=== PATIENT | female | born 1955 | race Caucasian/White ===

== ENCOUNTER 2020-03-20 17:41 | Inpatient (IN) ==
[2020-03-20 20:09] LABS: INR 1.11 (0.82-1.09)
[2020-03-20 20:10] LABS: Hematocrit 44 % (35-47); Mean Corpuscular HGB Conc 34 g/dL (31-36); Mean Corpuscular Hemoglobin 30 pg (27-31); Mean Corpuscular Volume 88 fL (80-97); Red Cell Distribution Width 14 % (10-15)
[2020-03-20 20:18] LABS: Urine Appearance Turbid; Urine Bilirubin Negative (Negative); Urine Blood 1+ (Negative); Urine Color Amber; Urine Glucose Negative (Negative); Urine Ketones Negative (Negative); Urine Nitrite Negative (Negative); Urine Protein 2+(100 mg/dL) (Negative); Urine Specific Gravity 1.016 (1.010-1.030); Urine Urobilinogen Negative (Negative)
[2020-03-20 20:20] LABS: Urine Bacteria Absent (Absent); Urine Red Blood Cell 3+(>10/hpf) (Absent); Urine Squamous Epithelial Cell Present (Absent); Urine White Blood Cell 3+(>20/hpf) (Absent)
[2020-03-20 20:23] LABS: ALT 76 U/L (7-52); Albumin 3.2 g/dL (3.2-5.2); Albumin/Globulin Ratio 0.9 (1-3); Alkaline Phosphatase 88 U/L (34-104); BUN/Creatinine Ratio 18.8 (8-20); Blood Urea Nitrogen 47 mg/dL (6-24); C Reactive Protein 302.02 mg/L (<8.01); CO2 Carbon Dioxide 22 mmol/L (22-32); Calcium 10.5 mg/dL (8.6-10.3); Chloride 94 mmol/L (101-111); EGFR African American 23.4 (>60); EGFR Non-African American 19.3 (>60); Globulin 3.6 g/dL (2-4); Glucose 132 mg/dL (70-100); Sodium 130 mmol/L (135-145); Total Protein 6.8 g/dL (6.4-8.9)
[2020-03-20] MEDS ORDERED: NS 0.9% 1000 ml BAG 1,000 ML IV ONE (20:33)
[2020-03-20] MEDS ORDERED: cefTRIAXone 1 gm/50 mL NS BAG 1 GM/50 ML BAG IV ONE (20:33)
[2020-03-20 20:38] LABS: ABS Lymphocytes 0.8 10^3/ul (1.0-4.8); ABS Neutrophils 9.1 10^3/ul (1.5-7.7); Eosinophil % 0.2 %; Platelet Count 32 10^3/uL (150-450)
[2020-03-20 21:00] LABS: Influenza A Molecular Negative (Negative); Influenza B Molecular Negative (Negative)
[2020-03-20 21:11] LABS: Anion Gap 14 mmol/L (2-11)
[2020-03-20] MEDS ORDERED: Ondansetron 4 mg VIAL 2 MG/ML 2 ml VIAL IV PRN (21:45)
[2020-03-20] MEDS ORDERED: NS 0.9% 1000 ml BAG 1,000 ML IV SCH (21:45)
[2020-03-20 22:12] LABS: Potassium Redraw 3.8 mmol/L (3.5-5.0)
[2020-03-21] MEDS: NS 0.9% 1000 ml BAG 1,000 ML IV SCH ×2 (00:43→17:17)
[2020-03-21] MEDS: DOXYcycline 100 MG in NS 0.9% 250 ml 250 ML IVPB SCH ×2 (01:38→11:49)
[2020-03-21] MEDS: Al Hydrox/Mg Hydrox/Simet LIQ 30 ML UDC PO PRN ×2 (04:51→12:09)
[2020-03-21 07:31] LABS: BUN/Creatinine Ratio 23.2 (8-20); EGFR Non-African American 30.6 (>60); Potassium 3.3 mmol/L (3.5-5.0)
[2020-03-21 08:32] LABS: ABS Eosinophils 0.1 10^3/ul (0-0.6); ABS Lymphocytes 0.5 10^3/ul (1.0-4.8); ABS Monocytes 1.4 10^3/ul (0-0.8); ABS Neutrophils 9.5 10^3/ul (1.5-7.7); Eosinophil % 0.7 %; Hematocrit 35 % (35-47); Hemoglobin 11.9 g/dL (12.0-16.0); Lymphocyte % 4.4 %; Mean Corpuscular HGB Conc 34 g/dL (31-36); Mean Corpuscular Hemoglobin 30 pg (27-31); Mean Corpuscular Volume 88 fL (80-97); Mean Platelet Volume 11.2 fL (7.4-10.4); Nucleated Red Blood Cells % 0.1; Platelet Count 13 10^3/uL (150-450); Red Blood Count 3.96 10^6 /uL (3.70-4.87); Red Cell Distribution Width 14 % (10-15); White Blood Count 11.5 10^3/uL (3.5-10.8)
[2020-03-21] MEDS ORDERED: Heparin 5000 UNITS/ML 1 mL VIAL SUBCUT SCH (09:00)
[2020-03-21 11:23] LABS: ABS Lymphocytes 1.2 10^3/ul (1.0-4.8); ABS Monocytes 1.6 10^3/ul (0-0.8); ABS Neutrophils 8.8 10^3/ul (1.5-7.7); Eosinophil % 0.1 %; Hematocrit 34 % (35-47); Hemoglobin 11.4 g/dL (12.0-16.0); Lymphocyte % 10.5 %; Mean Corpuscular HGB Conc 34 g/dL (31-36); Mean Corpuscular Hemoglobin 30 pg (27-31); Mean Corpuscular Volume 88 fL (80-97); Mean Platelet Volume 10.5 fL (7.4-10.4); Platelet Count 15 10^3/uL (150-450); Red Blood Count 3.83 10^6 /uL (3.70-4.87); Red Cell Distribution Width 14 % (10-15); White Blood Count 11.7 10^3/uL (3.5-10.8)
[2020-03-21] MEDS: Potassium Chloride LIQUID 20 MEQ/15 ML LIQUID PO SCH ×2 (11:49→19:11)
[2020-03-21 13:39] LABS: Activated Partial Thrombo Time 25.6 seconds (26.0-38.0); Fibrinogen 313.4 mg/dL (110.8-404.3); INR 1.09 (0.82-1.09)
[2020-03-21 13:41] LABS: Albumin 2.4 g/dL (3.2-5.2); Albumin/Globulin Ratio 0.9 (1-3); Globulin 2.7 g/dL (2-4); Indirect Bilirubin 0.2 mg/dL (0.3-1.0); Total Bilirubin 0.4 mg/dL (0.2-1.0); Total Protein 5.1 g/dL (6.4-8.9)
[2020-03-21 18:30] LABS: Platelet Count 27 10^3/uL (150-450)
[2020-03-21 20:28] LABS: RBC Parasite Smear No Parasites Seen (No Parasite)
[2020-03-21] MEDS: cefTRIAXone 1 gm/50 mL NS BAG 1 GM/50 ML BAG IVPB SCH (20:35)
[2020-03-22] MEDS: DOXYcycline 100 MG in NS 0.9% 250 ml 250 ML IVPB SCH ×2 (00:46→11:51)
[2020-03-22 02:52] LABS: Hematocrit 37 % (35-47); Hemoglobin 12.7 g/dL (12.0-16.0)
[2020-03-22 07:24] LABS: Hematocrit 37 % (35-47); Hemoglobin 12.7 g/dL (12.0-16.0); Mean Corpuscular HGB Conc 35 g/dL (31-36); Mean Corpuscular Hemoglobin 30 pg (27-31); Mean Corpuscular Volume 87 fL (80-97); Mean Platelet Volume 11.6 fL (7.4-10.4); Platelet Count 31 10^3/uL (150-450); Red Blood Count 4.23 10^6 /uL (3.70-4.87); Red Cell Distribution Width 15 % (10-15); White Blood Count 9.6 10^3/uL (3.5-10.8)
[2020-03-22 07:38] LABS: Albumin 2.1 g/dL (3.2-5.2); Albumin/Globulin Ratio 0.8 (1-3); BUN/Creatinine Ratio 27.4 (8-20); Calcium 7.2 mg/dL (8.6-10.3); EGFR African American 71.4 (>60); Globulin 2.6 g/dL (2-4); Magnesium 1.9 mg/dL (1.9-2.7); Potassium 3.9 mmol/L (3.5-5.0); Total Bilirubin 0.4 mg/dL (0.2-1.0); Total Protein 4.7 g/dL (6.4-8.9)
[2020-03-22] MEDS: NS 0.9% 1000 ml BAG 1,000 ML IV SCH ×2 (07:42→20:30)
[2020-03-22 08:48] LABS: ABS Basophils 0.1 10^3/ul (0-0.2); ABS Eosinophils 0.1 10^3/ul (0-0.6); ABS Lymphocytes 1.9 10^3/ul (1.0-4.8); ABS Monocytes 1.8 10^3/ul (0-0.8); ABS Neutrophils 5.8 10^3/ul (1.5-7.7); Eosinophil % 0.9 %; Lymphocyte % 19.3 %
[2020-03-22] MEDS ORDERED: Pneumococcal Vac 23-Polyvalent IM ONE (09:00)
[2020-03-22 12:34] LABS: Hepatitis B Surface Antigen Nonreactive (Nonreactive)
[2020-03-22 12:39] LABS: Hepatitis A Ab IgM Negative (Negative)
[2020-03-22 12:40] LABS: Hepatitis B Core IgM Nonreactive (Nonreactive)
[2020-03-22 12:52] LABS: Hepatitis C Antibody Negative (Negative)
[2020-03-22] MEDS ORDERED: Magnesium Hydroxide LIQ 30 ML UDC PO PRN (13:39)
[2020-03-22] MEDS: cefTRIAXone 1 gm/50 mL NS BAG 1 GM/50 ML BAG IVPB SCH (20:30)
[2020-03-22] MEDS ORDERED: diPHENhydraMINE 25 mg TAB PO ONE (21:04)
[2020-03-23 00:24] LABS: Anaplasma phagocytophilium <1:64 titer (<1:64); Ehrlichia chaffeensis IgG AB <1:64 titer (<1:64); Lyme Disease Serology Negative (Negative)
[2020-03-23] MEDS: DOXYcycline 100 MG in NS 0.9% 250 ml 250 ML IVPB SCH ×2 (00:40→11:46)
[2020-03-23 01:35] LABS: IgG Immunoblot Negative (Negative); IgM Immunoblot Negative (Negative)
[2020-03-23] MEDS: Al Hydrox/Mg Hydrox/Simet LIQ 30 ML UDC PO PRN (04:04)
[2020-03-23 07:01] LABS: Hematocrit 39 % (35-47); Hemoglobin 13.2 g/dL (12.0-16.0); Mean Corpuscular HGB Conc 34 g/dL (31-36); Mean Corpuscular Hemoglobin 30 pg (27-31); Mean Corpuscular Volume 88 fL (80-97); Mean Platelet Volume 11.4 fL (7.4-10.4); Platelet Count 43 10^3/uL (150-450); Red Blood Count 4.45 10^6 /uL (3.70-4.87); Red Cell Distribution Width 15 % (10-15); White Blood Count 10.2 10^3/uL (3.5-10.8)
[2020-03-23 07:02] LABS: CO2 Carbon Dioxide 18 mmol/L (22-32); Calcium 7.1 mg/dL (8.6-10.3); Potassium 3.8 mmol/L (3.5-5.0); Sodium 139 mmol/L (135-145)
[2020-03-23 07:04] LABS: Anion Gap 5 mmol/L (2-11); Chloride 116 mmol/L (101-111)
[2020-03-23 07:08] LABS: Blood Urea Nitrogen 15 mg/dL (6-24); EGFR African American 88.4 (>60); Glucose 85 mg/dL (70-100)
[2020-03-23 08:07] LABS: ABS Eosinophils 0.1 10^3/ul (0-0.6); ABS Lymphocytes 1.9 10^3/ul (1.0-4.8); ABS Monocytes 1.6 10^3/ul (0-0.8); ABS Neutrophils 6.6 10^3/ul (1.5-7.7); Eosinophil % 0.9 %; Lymphocyte % 18.1 %
[2020-03-23 08:09] LABS: Platelet Morphology Large
[2020-03-23 09:52] LABS: C Reactive Protein 44.01 mg/L (<8.01)
[2020-03-23] MEDS: NS 0.9% 1000 ml BAG 1,000 ML IV SCH (10:04)
[2020-03-23 13:46] LABS: Vitamin B12 > 1450 pg/mL (180-914)
[2020-03-23 14:11] LABS: ADAMTS13 Activity Assay 60 % (>/=70)
[2020-03-23] MEDS: cefTRIAXone 1 gm/50 mL NS BAG 1 GM/50 ML BAG IVPB SCH (22:10)
[2020-03-24 00:55] LABS: Anaplasma phagocytophilum Positive (Negative); B. miyamotoi PCR, B Negative (Negative); Babesia divergens/MO-1 Negative (Negative); Babesia ducani Negative (Negative); Ehrlichia chaffeensis Negative (Negative); Ehrlichia ewingii/canis Negative (Negative); Ehrlichia muris eauclairensis Negative (Negative)
[2020-03-24] MEDS: NS 0.9% 1000 ml BAG 1,000 ML IV SCH (03:20)
[2020-03-24] MEDS: Al Hydrox/Mg Hydrox/Simet LIQ 30 ML UDC PO PRN (04:09)
[2020-03-24 07:21] LABS: Hematocrit 38 % (35-47); Hemoglobin 12.7 g/dL (12.0-16.0); Mean Corpuscular HGB Conc 34 g/dL (31-36); Mean Corpuscular Hemoglobin 29 pg (27-31); Mean Corpuscular Volume 88 fL (80-97); Platelet Count 73 10^3/uL (150-450); Red Blood Count 4.34 10^6 /uL (3.70-4.87); Red Cell Distribution Width 15 % (10-15); White Blood Count 14.5 10^3/uL (3.5-10.8)
[2020-03-24 08:49] LABS: ABS Basophils 0.1 10^3/ul (0-0.2); ABS Eosinophils 0.1 10^3/ul (0-0.6); ABS Lymphocytes 3.1 10^3/ul (1.0-4.8); ABS Monocytes 2.5 10^3/ul (0-0.8); ABS Neutrophils 8.7 10^3/ul (1.5-7.7); Eosinophil % 0.9 %; Lymphocyte % 21.7 %; Nucleated Red Blood Cells % 0.1
[2020-03-24 14:12] VITALS: BP 120/82
[2020-03-29 13:40] LABS: Albumin 14 %; Albumin/Globulin Ratio 0.17 %; Gamma Globulin 9 %; Total Protein(PEP) Urine 5 mg/dL
[2020-03-29 14:03] LABS: Anti-Thrombin III Complex 20.6 ng/mL (<4.3)
[2020-03-29 17:32] LABS: Albumin 1.9 g/dL (3.4-4.7); Albumin/Globulin Ratio 0.67; Gamma Globulin 1.5 g/dL (0.6-1.6); Total Protein(PEP) 4.7 g/dL (6.3 - 7.9)
== END 2020-03-24 15:30 | disposition home or self-care (01) | DRG 872 ==
LOC: ED 17:41 → MED 21:45
PROVIDERS: ADMIT Internal Medicine; ATTEND Internal Medicine